=== PATIENT | female | born 1955 | race Caucasian/White ===

== ENCOUNTER 2017-04-28 00:58 | Emergency (ER) | payer OTHER ==
[~2017-04-28] VITALS: Ht 162.6 cm; Wt 73.9 kg
[2017-04-28] MEDS ORDERED: PRAVACHOL20 MG PO (01:02)
[2017-04-28] MEDS ORDERED: METFORMIN HCL500 MG PO (01:02)
[2017-04-28] MEDS ORDERED: PREVACID30 M2 PO (01:02)
[2017-04-28] MEDS ORDERED: LISINOPRIL10 MG PO (01:02)
[2017-04-28 01:38] LABS: ABSOLUTE BASOPHILS 0.1 thou/uL (0.0-0.2); ABSOLUTE EOSINOPHILS 0.1 thou/uL (0.0-0.7); ABSOLUTE LYMPHOCYTES 3.1 thou/uL (0.8-5.3); ABSOLUTE MONOCYTES 0.9 thou/uL (0.0-1.2); ABSOLUTE NEUTROPHILS 7.2 thou/uL (1.6-8.1); BASOPHILS 0.5 %; EOSINOPHILS 0.6 %; HEMATOCRIT 39.9 % (37.0-47.0); HEMOGLOBIN 13.2 gm/dL (12.0-15.0); LYMPHOCYTES 27.3 %; MCHC 33.2 g/dL (28.0-37.0); MCV 87.4 fL (80.0-100.0); MONOCYTES 7.7 %; MPV 9.5 fl. (7.2-11.1); NUCLEATED RBCS 0 /100WBC; PLATELET COUNT* 147 thou/uL (150-400); POLYS 63.9 %; RBC 4.56 mil/uL (4.20-5.00); RDW-CV 14.1 % (10.5-14.5); WBC 11.2 thou/uL (4.0-11.0)
[2017-04-28 01:43] LABS: CALCIUM 9.6 mg/dL (8.5-10.1); POTASSIUM 4.9 mmol/L (3.5-5.1)
[2017-04-28] MEDS ORDERED: PREDNISONE50 MG PO (03:07)
[2017-04-28 03:46] VITALS: BP 154/95
== END 2017-04-28 03:49 | disposition home or self-care (01) ==
LOC: M.ERS 00:58
PROVIDERS: Emergency Medicine
DX: J03.90 Acute tonsillitis, unspecified (principal); I10 Essential (primary) hypertension; E78.00 Pure hypercholesterolemia, unspecified; E11.9 Type 2 diabetes mellitus without complications; Z90.89 Acquired absence of other organs; Z98.890 Other specified postprocedural states

== ENCOUNTER 2020-03-07 16:31 | Inpatient (IN) | payer OTHER ==
[2020-03-07] VITALS (19 sets, daily range): BP systolic 131–181; BP diastolic 84–110
[~2020-03-07] VITALS: Ht 162.6 cm; Wt 68.9 kg
--- NOTE | ~2020-03-07 | H ---
[address] [address] HISTORY AND PHYSICAL Name: FEROZ ELIZABETH Room: [address] IN M.R.#: [id number] Admission: 03/07/20 Attend Phys: Lonny Paz MD Discharge: 03/09/20 Date of : 59 Report #: [id number] THIS REPORT FOR: cc: FAM - No family physician/PCP FAM - No family physician/PCP ~ [facility],Medical Records Staff For History and Physical please refer to the consultation note in the patient's medical record. By: [id number] Records Staff SACHA /CIERRA
[~2020-03-07 16:31] MED LIST: LISINOPRIL10 MG PO; METFORMIN HCL500 MG PO; PRAVACHOL20 MG PO; PREDNISONE50 MG PO; PREVACID30 M2 PO
[2020-03-07 17:01] LABS: ABSOLUTE BASOPHILS 0.1 thou/uL (0.0-0.2); ABSOLUTE LYMPHOCYTES 2.2 thou/uL (0.8-5.3); ABSOLUTE MONOCYTES 0.7 thou/uL (0.0-1.2); ABSOLUTE NEUTROPHILS 9.4 thou/uL (1.6-8.1); BASOPHILS 0.7 %; EOSINOPHILS 0.2 %; HEMATOCRIT 39.8 % (37.0-47.0); HEMOGLOBIN 13.1 gm/dL (12.0-15.0); LYMPHOCYTES 17.4 %; MCH 27.3 pg (26.0-34.0); MCHC 32.8 g/dL (28.0-37.0); MCV 83.1 fL (80.0-100.0); MONOCYTES 5.6 %; MPV 8.6 fl. (7.2-11.1); NUCLEATED RBCS 0 /100WBC; PLATELET COUNT* 182 thou/uL (150-400); POLYS 76.1 %; RBC 4.79 mil/uL (4.20-5.00); RDW-CV 15.4 % (10.5-14.5); WBC 12.4 thou/uL (4.0-11.0)
[2020-03-07 17:11] LABS: CREATININE 1.1 mg/dL (0.6-1.3); POTASSIUM 3.9 mmol/L (3.5-5.1)
[2020-03-07 17:13] LABS: APTT 22.2 Seconds (25.0-31.3); PROTIME 10.4 Seconds (9.20-11.50)
[2020-03-07 17:22] LABS: ALBUMIN 3.2 g/dL (3.4-5.0); MAGNESIUM 2.1 mg/dL (1.8-2.4); TOTAL BILIRUBIN 0.2 mg/dL (<0.1-1.0); TOTAL PROTEIN 7.6 g/dL (6.4-8.2)
[2020-03-08] VITALS (29 sets, daily range): BP systolic 112–168; BP diastolic 50–128
[2020-03-08 04:53] LABS: HEMATOCRIT 38.7 % (37.0-47.0); HEMOGLOBIN 12.9 gm/dL (12.0-15.0); MCH 27.5 pg (26.0-34.0); MCHC 33.5 g/dL (28.0-37.0); MCV 82.2 fL (80.0-100.0); MPV 9.1 fl. (7.2-11.1); RBC 4.71 mil/uL (4.20-5.00); RDW-CV 14.9 % (10.5-14.5); WBC 10.9 thou/uL (4.0-11.0)
[2020-03-08 05:10] LABS: ALBUMIN 2.9 g/dL (3.4-5.0); ALKALINE PHOSPHATASE 117 U/L (46-116); ANION GAP 11 mmol/L (7-16); BUN 15 mg/dL (7-18); CHLORIDE 107 mmol/L (98-107); CHOLESTEROL 264 mg/dL (<200); CO2 24 mmol/L (21-32); GLUCOSE 128 mg/dL (70-99); HDL CHOLESTEROL 30 mg/dL (>40); LDL CHOLESTEROL 179 mg/dL (<100); POTASSIUM 3.9 mmol/L (3.5-5.1); SGOT 188 U/L (15-37); SGPT 34 U/L (30-65); SODIUM 142 mmol/L (136-145); TC:HDL 8.8 Ratio (Not establshd); TOTAL BILIRUBIN 0.4 mg/dL (<0.1-1.0); TOTAL PROTEIN 6.9 g/dL (6.4-8.2); TRIGLYCERIDE 278 mg/dL (<150); VLDL 56 mg/dL (<40)
[2020-03-08 05:13] LABS: SERUM ASSESSMENT Clear
[2020-03-09 01:03] VITALS: BP 131/82
[2020-03-09 02:05] LABS: GLYCOHEMOGLOBIN (HGB A1C) 6.7 % (4.8-5.6)
[2020-03-09 04:32] VITALS: BP 114/72
[2020-03-09 08:00] VITALS: BP 141/86
[2020-03-09] MEDS ORDERED: LIPITOR 40 MG T40 M1 PO (10:51)
[2020-03-09] MEDS ORDERED: GLUCOPHAGE1000 MG PO (10:51)
[2020-03-09] MEDS ORDERED: EFFIENT10 MG PO (10:51)
[2020-03-09] MEDS ORDERED: NITROGLYCERIN0.4 MG SUBLING (10:51)
[2020-03-09] MEDS ORDERED: LISINOPRIL5 MG PO (10:51)
[2020-03-09] MEDS ORDERED: METOPROLOL TART25 MG PO (10:51)
[2020-03-09] MEDS ORDERED: ASPIR 8181 MG PO (10:51)
--- NOTE | 2020-03-09 11:35 | CON ---
[address] [address] CONSULTATION Name: FEROZ ELIZABETH Room: [address] IN M.R.#: [id number] Admission: 03/07/20 Attend Phys: Lonny Paz MD Discharge: Date of : 59 Report #: [id number] THIS REPORT FOR: cc: FAM - No family physician/PCP FAM - No family physician/PCP ~ Lonny Paz MD [facility] INDICATION: ST elevation myocardial infarction. HISTORY OF PRESENT ILLNESS: The patient is a 64-year-old white female who began having chest pain at approximately noon. She presented to the Emergency Room at approximately 4:45 p.m. The patient had diaphoresis with this. There was no radiation of the pain. The patient states the pain had begun to wean prior to arrival to the Emergency Room. She was given aspirin and nitroglycerin. The patient was taken emergently to the cardiac catheterization lab and found to have a chronically occluded right coronary artery, filled by left to right collaterals and an acutely occluded distal circumflex obtuse marginal branch as well as a significant mid circumflex disease. The patient underwent percutaneous coronary intervention with drug-eluting stent placement to the obtuse marginal branch of the circumflex as well as percutaneous coronary intervention with drug-eluting stent placement to the mid circumflex. The patient is being admitted for continued treatment. PAST MEDICAL HISTORY: 1. Hypertension. 2. Dyslipidemia. 3. Diabetes. 4. History of tonsillectomy and adenoidectomy. 5. . HOME MEDICATIONS: None. The patient had previously been on lansoprazole, lisinopril, metformin, and pravastatin. ALLERGIES: None documented. SOCIAL HISTORY: The patient smokes cigarettes daily, drinks alcohol rarely. FAMILY HISTORY: Noncontributory. REVIEW OF SYSTEMS: Positive for some shortness of breath, chest discomfort as outlined above, cough. Otherwise, 14-point review of systems unremarkable. PHYSICAL EXAMINATION: VITAL SIGNS: Stable. Blood pressure was 154/88, pulse is 98 and regular. GENERAL: This is a thin, pleasant, elderly female who is in no distress. [place] [address] CONSULTATION Name: VESNA ELIZABETHSA Room: [address] IN .R.#: [id number] Admission: 03/07/20 Attend Phys: Lonny Paz MD Discharge: Date of : 59 Report #: [id number] HEENT: Extraocular muscles intact. Mucous membranes are moist. NECK: Shows no jugular venous distention. There are no carotid bruits. CHEST: Reveals clear lung jimenez without wheezes or rales. CARDIAC: Reveals a regular rhythm with normal S1 and S2. I do not appreciate gallop or murmur. ABDOMEN: Reveals normal bowel sounds. The abdomen is soft, nontender. EXTREMITIES: Shows no edema. Peripheral pulses 2+ and palpable. SKIN: Warm and dry. LABORATORY DATA: A 12-lead EKG shows ST elevation in inferior leads with reciprocal changes in the anterolateral leads. IMPRESSION AND RECOMMENDATIONS: 1. Acute inferior wall ST elevation myocardial infarction. Catheterization findings as outlined above. Two stents were placed. The patient will remain on dual antiplatelet therapy for a minimum of 6 and preferably 12 months. 2. Coronary artery disease. Continue antiplatelet treatment and risk factor modification. 3. Hyperlipidemia. Start atorvastatin 40 mg at bedtime. 4. Hypertension. Blood pressure moderately elevated in catheterization lab. We will start lisinopril and metoprolol tartrate. 5. Diabetes. The patient had been on metformin. We will hold for at least 1 or 2 days post-catheterization. Follow up labs ordered. <ELECTRONICALLY SIGNED> By: Lonny Paz MD, FACC 03/09/20 1135 1837 [id number] Paz MD, FACC /nt
[2020-03-09 11:45] VITALS: BP 141/86
--- NOTE | 2020-03-10 10:19 | EKG ---
[place] [address] ELECTROCARDIOGRAM REPORT Name: GLENNFEROZ Room: [address] DIS IN M.R.#: [id number] Admission: 03/07/20 Attend Phys: Lonny Paz, Discharge: 03/09/20 Date of : 59 Date of Service: 03/07/202139 Report #: [id number] THIS REPORT FOR: //name// [facility] Test Date: 2020-03-07 Test Time: 21:40:35 Pat Name: FEROZ ELIZABETH Department: Room: [facility] Gender: F Controls Operator Molded Goods: LUIGI : 1955 Requested By: yWatt Messer Order Number: [id number] MD: Enoc Mondragon Measurements Intervals [place] Rate: 87 P: 72 FL: 158 QRS: 64 QRSD: 87 T: -42 QT: 427 QTc: 514 Interpretive Statements Sinus rhythm Consider right atrial enlargement Abnormal T, consider ischemia, diffuse leads Minimal ST elevation, anterior leads Prolonged QT interval Baseline wander in lead(s) II,III,aVL,aVF,V1 compared to 16:52 rate has slowed Electronically Signed On 03-10-2020 10:19:44 INGREDIENT HANDLER by Enoc Mondragon [email or web address] <ELECTRONICALLY SIGNED> By: Enoc Mondragon MD, FAC 03/10/20 1019 39 39 Enoc Mondragon MD, [facility] /EPI
--- NOTE | 2020-03-10 10:20 | EKG ---
[place] [address] ELECTROCARDIOGRAM REPORT Name: FEROZ ELIZABETH Room: [address] DIS IN M.R.#: [id number] Admission: 03/07/20 Attend Phys: Lonny Paz, Discharge: 03/09/20 Date of : 59 Date of Service: 03/08/20 0506 Report #: [id number] THIS REPORT FOR: //name// [facility] Test Date: 2020-03-08 Test Time: 05:06:03 Pat Name: FEROZ ELIZABETH Department: Room: [facility] Gender: F Imaging Nurse: LUIGI : 1955 Requested By: Lonny Paz Order Number: [id number] Reading MD: Enoc Mondragon Measurements Intervals [place] Rate: 81 P: 24 DC: 141 QRS: 62 QRSD: 85 T: -51 QT: 457 QTc: 531 Interpretive Statements Sinus rhythm Abnormal R-wave progression, early transition Abnormal T, consider ischemia, diffuse leads Minimal ST elevation, anterior leads Prolonged QT interval Compared to ECG 03/07/2020 21:40:35 No significant changes Electronically Signed On 03-10-2020 10:20:03 ELECTRONICS ENGINEERING TECHNOLOGIST by Enoc Mondragon [email or web address] <ELECTRONICALLY SIGNED> By: Enoc Mondragon MD, FAC 03/10/20 1020 0506 0506 Enoc Mondragon MD, FAC /EPI
--- NOTE | 2020-03-10 13:19 | EKG ---
[place] [address] ELECTROCARDIOGRAM REPORT Name: GLENNFEROZ Room: [address] DIS IN M.R.#: [id number] Admission: 03/07/20 Attend Phys: Lonny Paz, Discharge: 03/09/20 Date of : 59 Date of Service: 03/07/20 1652 Report #: [id number] THIS REPORT FOR: //name// [facility] Test Date: 2020-03-07 Test Time: 16:52:14 Pat Name: FEROZ ELIZABETH Department: Room: [address] Gender: F Handstitching Machine Collar Feller: JULIO C : 1955 Requested By: Wyatt Messer Order Number: [id number] Reading MD: Enoc Mondragon Measurements Intervals [place] Rate: 126 P: 60 MD: 121 QRS: 66 QRSD: 83 T: 71 QT: 343 QTc: 497 Interpretive Statements Sinus tachycardia Probable left atrial enlargement Inferoposterior infarct, acute (LCx) Lateral infarct, acute Baseline wander in lead(s) V2 Compared to ECG 03/07/2020 16:51:20 No significant changes Electronically Signed On 03-10-2020 13:19:13 UPPERS EDGE BURNISHER by Enoc Mondragon [email or web address] <ELECTRONICALLY SIGNED> By: Enoc Mondragon MD, FACC 03/10/20 1319 165 1652 Enoc Mondragon MD, [facility] /EPI
--- NOTE | 2020-03-10 13:19 | EKG ---
[place] [address] ELECTROCARDIOGRAM REPORT Name: FEROZ ELIZABEHT Room: [address] DIS IN M.R.#: [id number] Admission: 03/07/20 Attend Phys: Lonny Paz, Discharge: 03/09/20 Date of : 59 Date of Service: 03/07/20 1651 Report #: [id number] THIS REPORT FOR: //name// [facility] Test Date: 2020-03-07 Test Time: 16:51:20 Pat Name: FEROZ ELIZABETH Department: Room: [facility] Gender: F Manager Hvac: JULIO C : 1955 Requested By: Lonny Paz Order Number: [id number] Brad MD: Enoc Mondragon Measurements Intervals [place] Rate: 124 P: 53 CT: 130 QRS: 60 QRSD: 82 T: 58 QT: 339 QTc: 487 Interpretive Statements Sinus tachycardia Probable left atrial enlargement Inferoposterior infarct, acute (LCx) Lateral infarct, acute No previous ECG available for comparison Electronically Signed On 03-10-2020 13:18:48 GOLD LEAF LAYER by Enoc Mondragon [email or web address] <ELECTRONICALLY SIGNED> By: Enoc Mondragon MD, FAC 03/10/20 1318 1651 1651 Enoc Mondragon MD, [facility] /EPI
--- NOTE | 2020-03-10 17:02 | CARD ---
[address] [address] CARDIAC CATH REPORT Name: FEROZ ELIZABETH Room: [address] IN M.Adolfo.#: [id number] Admission: 03/07/20 Attend Phys: Lonny Paz MD Discharge: 03/09/20 Date of : 59 Report #: [id number] THIS REPORT FOR: cc: FAM - No family physician/PCP FAM - No family physician/PCP ~ Erik Orr MD [facility] APPROVED REPORT Study performed: 03/07/2020 16:52:44 Patient Details Patient Status: ED Room #: The patient is a 64 year-old female Event Personnel Lonny Paz Rubber Tire Curer, Erik Orr Principal Web Developer, Vanesa Schaffer RTR Scrub, Rina Davis RN Circulate Procedures Performed Art Access - R femoral artery* Art Access - R femoral artery* Left Heart Cath w/or w/o Coronaries [id number] [facility] Hemostasis w/ Angioseal Indication STEMI (>0 to less than or equal to 6 hours) Risk Factors Dysplipidemia , Hypercholesterolemia, Diabetes Tobacco History (Current smoker) Admission/Lab Medications/Medications given during procedure Angiomax IV 11 ml, Angiomax Drip IV 26.5 ml per hr, Effient PO 60 mg Procedure Narrative The patient was brought emergently to the Cardiac Catheterization Laboratory and was prepped and draped in a sterile manner. The right femoral was infiltrated with 2% Lidocaine subcutaneous anesthesia. A [place] 6 FR sheath was inserted into the right femoral artery. Coronary angiography was performed using coronary diagnostic catheters. The right coronary system was accessed and visualized with a 6F JR4 catheter. The left coronary system was accessed and visualized with a 6F JL4 catheter. The [place] [address] CARDIAC CATH REPORT Name: FEROZ ELIZABETH Room: [address]#: [id number] Admission: 03/07/20 Attend Phys: Lonny Paz MD Discharge: 03/09/20 Date of : 59 Report #: [id number] and visualized with a 6F Pigtail catheter. Left ventricular/Aortic Valve gradient assessed via catheter pullback. Left ventriculogram was performed in NASH projection. Pre-demployment femoral angiogram was performed . Closure device was deployed with a 6 Fr Angioseal STS. The patient tolerated the procedure well and there were no complications associated with the procedure. There was no hematoma. Intraoperative Conscious Sedation Sedation start time: 17:19 Case end Time: 18:19 Fentanyl 25.0 mcg Versed 1.0 mg Fluoro Time: 11.5 minutes Dose: DAP 318652 cGycm2 3177 mGy Contrast Type and Amount: Visipaque 310 ml Diagnostic Cath Left Main The left main coronary is short and normal. The left main bifurcates into a left anterior descending and circumflex coronary artery. LAD The left anterior descending coronary artery has a 20% narrowing/plaquing in its midportion. The distal vessel appears free of significant disease. Diagonal 1 The first diagonal branch appears minimally plaqued. Diagonal 2 The second diagonal branch has a 50% narrowing at the ostium. Diagonal 3 The third diagonal branch appears normal. Circumflex The circumflex coronary artery is moderately up to 40% narrowed proximally with a focal 90% stenosis in the midportion with poststenotic aneurysmal dilatation noted. Distally the circumflex terminates in a large bifurcating obtuse marginal branch with total occlusion of the larger of the 2 branches. OM1 Normal. OM2 Large bifurcating termination of the circumflex with the larger branch occluded at the origin. Right Coronary The right coronary artery is totally occluded proximally. The distal vessel fills by right to right and left to right collaterals. R PDA Faintly visualized and fills by right to right and left to right collaterals. Left Ventriculography The left ventricle is normal in [place] [address] CARDIAC CATH REPORT Name: FEROZ ELIZABETH Room: [address] IN M.R.#: [id number] Admission: 03/07/20 Attend Phys: Lonny Paz MD Discharge: 03/09/20 Date of : 59 Report #: [id number] contractility. The left ventricular ejection fraction is estimated to be 45-50%. Left ventricular wall motion abnormalities are present. Hemodynamics The aortic pressure is 167/95 mmHg with a mean of 76 mmHg. The left ventricular pressure is 179/16 mmHg with a mean of mmHg. The left ventricular end diastolic pressure is 17 mmHg. PCI Technique Lesion Anticoagulation was achieved with Angiomax. Patient was preloaded with Angiomax IV 11 ml. Percutaneous coronary intervention was performed on the distal circumflex artery segment. The lesion stenosis prior to intervention was 100% with DELTA 0 flow. A 6FR XB 3.5 100CM Guide Catheter was used to engage the right ostium. A BMW 190cm Interventional Guidewire was used to cross the lesion. BALLOON DILATION A Balloon catheter Euphora SC 2.0x12mm was inserted and inflated up to 8.00atm for 9seconds. Additional Inflation: 8.00atm for 6seconds. Additional Inflation: 12.00atm for 7seconds. STENT DEPLOYMENT A drug-eluting stent [place] RX Stent 2.97G45tz was inserted and inflated up to 12.00atm for 7seconds. Final angiography reveals 0 % stenosis with DELTA 3 flow. PCI Technique Lesion 2 Percutaneous Coronary Intervention was performed on the mid circumflex artery segment. Patient was preloaded with Angiomax IV 11 ml. The lesion stenosis prior to intervention was 90% with DELTA 3 flow. Stent Deployment A drug-eluting stent [place] RX Stent 2.88K11xi was inserted and inflated up to 12.00atm for 15seconds. Additional Inflation: 16.00atm for 8seconds. Final angiography reveals 10 % stenosis with DELTA 3 flow. Conclusion 1. Two-vessel coronary artery disease as outlined above. 2. Acute occlusion of the distal circumflex. [address] [address] CARDIAC CATH REPORT Name: FEROZ ELIZABETH Room: [address] IN M.R.#: [id number] Admission: 03/07/20 Attend Phys: Lonny Paz MD Discharge: 03/09/20 Date of : 59 Report #: [id number] 3. Critical 90% narrowing of the mid circumflex. 4. Chronic occlusion of the right coronary artery. 5. Mild left ventricular systolic dysfunction with akinesis noted in the inferolateral wall. 6. Mild elevation of the left ventricular end-diastolic pressure consistent with acute diastolic heart failure. 7. STEMI related to total occlusion of the distal circumflex 8. Successful PCI with deployment of drug-eluting stent at the site of 100% distal circumflex occlusion with 0% residual narrowing and DELTA-3 flow to the distal vessel 9. Successful PCI with deployment of a drug-eluting stent at site of 90% mid circumflex stenosis with 10% residual narrowing and DELTA-3 flow to the distal vessel Recommendations Cardiac Risk Reduction Program Aggressive Medical Therapy 1. Percutaneous coronary intervention to the mid and distal circumflex coronary artery. 2. Aggressive risk factor modification. Medications Administered Aspirin (any) Prasugrel Diagnostic Cath Approved by: Lonny Paz MD Date/Time: 03/10/2020 17:00:58 <ELECTRONICALLY SIGNED> By: Erik Orr MD, [facility] 03/10/201701 01 01Erik Orr MD, FAC /INF
--- NOTE | 2020-03-11 09:24 | D ---
[address] [address] DISCHARGE SUMMARY Name: FEROZ ELIZABETH Room: [address] IN M.R.#: [id number] Admission: 03/07/20 Attend Phys: Lonny Paz MD Discharge: 03/09/20 Date of : 59 Report #: [id number] THIS REPORT FOR: cc: FAM - No family physician/PCP FAM - No family physician/PCP ~ Lonny Paz MD [facility] DISCHARGE DIAGNOSES: 1. Acute inferior ST elevation myocardial infarction. 2. Coronary artery disease. 3. Hypertension. 4. Hyperlipidemia. 5. Type 2 diabetes mellitus. 6. Acute diastolic heart failure. PROCEDURES DURING THE HOSPITALIZATION: 1. Left heart catheterization. 2. Coronary angiography. 3. Percutaneous coronary intervention with drug-eluting stent placement to the mid and distal circumflex coronary artery. HOSPITAL COURSE: The patient was admitted to the hospital on 03/07/2020, with acute inferior wall ST elevation myocardial infarction. The patient was taken emergently to the cardiac catheterization lab. Angiography showed a chronically occluded right coronary artery that filled by right to left and left to left collaterals. The distal circumflex had an acute occlusion, which was the culprit vessel. The mid circumflex was 90% stenosed. The patient underwent drug-eluting stent placement to the distal circumflex with excellent result. The patient also had a drug-eluting stent placement to the mid circumflex with excellent result. The patient tolerated the procedure well without complication. The remainder of the patient's hospital course was unremarkable. She is being discharged in stable condition. DISCHARGE MEDICATIONS: 1. Prasugrel 10 mg daily. 2. Aspirin 81 mg daily. 3. Metoprolol 25 mg b.i.d. 4. Lisinopril 10 mg daily. 5. Metformin 500 mg b.i.d. 6. Nitrostat sublingual p.r.n. DISPOSITION: The patient is to follow up with Cardiology in 2-4 weeks. <ELECTRONICALLY SIGNED> By: Lonny Paz MD, FACC 03/11/20 0924 1056 [id number] Paz MD, FACC /nt
== END 2020-03-09 12:00 | disposition home or self-care (01) | DRG 246 ==
LOC: M.ERS 16:31 → M.TBA-CV 17:05 → M.ERS 17:05 → M.CL 17:05 → M.TBA-CV 18:24 → M.ICU 18:24 → M.2W 03-08 10:27
PROVIDERS: Emergency Medicine Emergency Medical Services; ADMIT Internal Medicine Cardiovascular Disease; ATTEND Internal Medicine Cardiovascular Disease
DX: I21.19 ST elevation (STEMI) myocardial infarction involving other coronary artery of inferior wall (principal); I50.31 Acute diastolic (congestive) heart failure; E78.5 Hyperlipidemia, unspecified; I11.0 Hypertensive heart disease with heart failure; E78.00 Pure hypercholesterolemia, unspecified; I25.10 Atherosclerotic heart disease of native coronary artery without angina pectoris; E11.9 Type 2 diabetes mellitus without complications; Z98.891 History of uterine scar from previous surgery; Z79.899 Other long term (current) drug therapy